=== PATIENT | male | born 1950 | race Caucasian/White ===

== ENCOUNTER → 2016-07-20 | Outpatient (CLI) | payer MEDICARE ==
[~2016-07-20] MED LIST: ALDACTONE25 MG NG; ALDACTONE25 MG PO; BAYER ASPIRIN C81 MG PO; COREG 6.25MG6.25 MG PO; EFFIENT10 M2 PO; FUROSEMIDE40 MG PO; LANOXIN 0.120.125 MG PO; LASIX 40MG. TAB40 MG PO; LISINOPRIL5 MG PO; LOSARTAN POTASS25 MG PO; METFORMIN 500M500 M1 PO; METFORMIN1000 MG PO; NATURE'S BLEN5000 IU PO; PRESERVISION A1 EAC1 PO; PRINIVIL10 M1 PO; TRESIBA SQ; VICODIN 5/500 T1 TAB PO; VICTOZA6 MG/ML SC; VITAMIN D1000 IU PO; ZANTAC 150150 MG PO; ZOCOR20 MG PO; ZOCOR40 MG PO
--- NOTE | 2016-07-20 09:50 | RADIOLOGY REPORT PS360 ---
LOWER LEG-LT HISTORY: Follow-up fracture HEALING OF LEFT FIBULA FX COMPARISON: 06/21/2016 FINDINGS: Healing fractures present at the neck of the fibula with increased callus formation with good alignment of the bony fragments. There are osteoarthritic changes of the knee joint and ankle joint. Generalized vascular calcification is present. IMPRESSION: Healing proximal fibular fracture
== END ==
LOC: RAD 08:01
DX: S82.832D Other fracture of upper and lower end of left fibula, subsequent encounter for closed fracture with routine healing (principal)

== ENCOUNTER 2017-04-24 09:14 | Day surgery (SDC) | payer MEDICARE ==
[2017-04-24 12:17] VITALS: BP 132/62
== END 2017-04-24 12:15 | disposition home or self-care (01) ==
LOC: SDC 09:14
PROVIDERS: Ophthalmology
PROC: 08RK3JZ Replacement of Left Lens with Synthetic Substitute, Percutaneous Approach (ICD-10-PCS; principal; 2017-04-24 12:00)
DX: H26.9 Unspecified cataract (principal); E11.319 Type 2 diabetes mellitus with unspecified diabetic retinopathy without macular edema
CPT/HCPCS: V2632